=== PATIENT | male | born 1990 | race American Indian/Alaskan Native ===

== ENCOUNTER 2020-11-08 10:06 | Outpatient (CLI) | payer OTHER ==
--- NOTE | 2020-11-08 11:03 | Cat Scan Report ---
CT CHEST WITHOUT CONTRAST INDICATION / CLINICAL INFORMATION: NODULE LEFT MID LUNG. TECHNIQUE: Axial CT images were obtained through the chest without contrast. All CT scans at this location are p erformed using CT dose reduction for ALARA by means of automated exposure control. COMPARISON: None available. FINDINGS: No focal consolidation, pleural effusion or pneumothorax. No definite nodular mass is seen. No medias tinal or hilar adenopathy. Mild prominent mesenteric node is seen in the upper abdomen however nonspe cific. No acute bone findings. IMPRESSION: 1. No acute findings are seen. No definite nodule or mass. Signer Name: Venkat Patterson MD Signed: 11/08/2020 10:58 AM Workstation Name: [id number]
== END 2020-11-08 10:07 | disposition home or self-care (01) ==
LOC: CT 10:06
PROVIDERS: ATTEND Internal Medicine
DX: R91.1 Solitary pulmonary nodule (principal)
CPT/HCPCS: 71250